=== PATIENT | male | born 1950 ===

== ENCOUNTER 2024-05-24 15:19 | Outpatient (CLI) | payer OTHER, SELFPAY ==
[2024-05-24 17:01] LABS: Estmated Average Glucose 232; Hemoglobin A1C 9.7 % (4.0-6.0)
== END 2024-05-24 15:20 | disposition home or self-care (01) ==
PROVIDERS: Visit Provider Family Medicine
DX: E11.40 Type 2 diabetes mellitus with diabetic neuropathy, unspecified (principal); D51.9 Vitamin B12 deficiency anemia, unspecified; E78.00 Pure hypercholesterolemia, unspecified
CPT/HCPCS: 83036

== ENCOUNTER 2024-06-01 15:39 | Outpatient (CLI) | payer OTHER, SELFPAY ==
[2024-06-01 16:15] LABS: Creatinine Urine, Random 35 mg/dL (39-259)
[2024-06-01 16:28] LABS: Microalbum Creatinine Ratio Ur 1229 mg/dL (0-20); Microalbumin Random Urine 43 ug/dL (0-20)
== END 2024-06-01 15:40 | disposition home or self-care (01) ==
PROVIDERS: Visit Provider Internal Medicine
DX: E11.9 Type 2 diabetes mellitus without complications (principal)
CPT/HCPCS: 82044